=== PATIENT | female | born 1965 | race Hispanic/Latino ===

== ENCOUNTER → 2023-06-02 | Emergency (ER) | payer OTHER ==
[~2023-06-02] MED LIST: KETOROLAC 30 MG/ML INJ ONE; NA CHLORIDE 0.9% 1,000 ML ONE; POTASSIUM 25 MEQ EFFERV TAB ONE
--- OUTSIDE RECORDS SUMMARY | 2023-06-02 12:23 | XMS REPORT | Continuity of Care Document ---
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 CO2 TOTAL (test code = 5746318920) 30 mmol/L 23-31 AGAP (test code = 9807913874) 2-16 BUN (test code = 6665272212) 12 mg/dL 7-23 GLUCOSE (test code = 0135950806) 96 mg/dL 70-110 CREATININE (test code = 8094172292) 0.59 mg/dL 0.50-1.04 TOTAL BILI (test code = 8015395327) 0.4 mg/dL 0.1-1.1 CALCIUM (test code = 8324230902) 8.4 mg/dL 8.6-10.6 L T PROTEIN (test code = 0668381722) 7.6 g/dL 6.3-8.2 ALBUMIN (test code = 0713632137) 4.4 g/dL 3.5-5.0 ALK PHOS (test code = 6150732959) 132 U/L 34-122 H ALTv (test code = 1742-6) 29 U/L 5-35 AST(SGOT) (test code = 2240005947) 25 U/L 13-40 eGFR (test code = 2657968361) mL/min/1.73m2 SHADE (test code = SHADE) Association of Glomerular Filtration Rate (GFR) and Staging of Kidney Disease* + --+ --+ ------+| GFR (mL/min/1.73 m2) ?| With Kidney Damage ?| ?Without Kidney Damage+ --------+ --------+ +| ?>90 ?| ?Stage one ?| ? Normal ?+ ---+ ---+ -------+| ?60-89 ?| ?Stage two ?| ? Decreased GFR ? + --+ --+ ------+| ?30-59 ?| ?Stage three ?| ? Stage three ? + --+ --+ ------+| ?15-29 ?| ?Stage four ? | ? Stage four ?+ ---+ ---+ -------+| ?<15 (or dialysis) ? ?| ?Stage five ? | ? Stage five ?+ ---+ ---+ -------+ *Each stage assumes the associated GFR level has been in effect for at least three months. ?Stages 1 to 5, with or without kidney disease, indicate chronic kidney disease. Notes: Determination of stages one and two (with eGFR >59mL/min/1.73 m2) requires estimation of kidney damage for at least three months as defined by structural or functional abnormalities of the kidney, manifested by either:Pathological abnormalities or Markers of kidney damage (including abnormalities in the composition of the blood or urine or abnormalities in imaging tests). Lab Interpretation (test code = 67740-2) Abnormal [facility] WITH [id number] 04:49:50* Test Item Value Reference Range Interpretation Comme nts WBC (test code = 6690-2) See_Comment [Zumigo] The system which generated this result transmitted reference range: 4.30 - 11.10 10*3/?L. The reference range was not used to interpret this result as normal/abnormal. RBC (test code = 789-8) See_Comment [Zumigo] The system which generated this result transmitted reference range: 3.93 - 5.25 10*6/?L. The reference range was not used to interpret this result as normal/abnormal. HGB (test code = 718-7) 13.7 g/dL 11.6-15.0 HCT (test code = 4544-3) 40.7 % 35.7-45.2 MCV (test code = 787-2) 88.3 fL 80.6-95.5 MCH (test code = 785-6) 29.7 pg 25.9-32.8 MCHC (test code = 786-4) 33.7 g/dL 31.6-35.1 RDW-SD (test code = 97348-1) 38.4 fL 39.0-49.9 L RDW-CV (test code = 788-0) 11.9 % 12.0-15.5 L PLT (test code = 777-3) See_Comment [Automated messa ge] The system which generated this result transmitted reference range: 166 - 358 10*3/?L. The reference range was not used to interpret this result as normal/abnormal. MPV (test code = 66154-3) 10.9 fL 9.5-12.9 NRBC/100 WBC (test code = 9614870511) See_Comment [Automated [employer] ssage] The system which generated this result transmitted reference range: 0.0 - 10.0 /100 WBCs. The reference range was not used to interpret this result as normal/abnormal. NRBC x10^3 (test code = 9297210081) <0.01 See_Comment [Automated messa ge] The system which generated this result transmitted reference range: 10*3/?L. The reference range was not used to interpret this result as normal/abnormal. GRAN MAT (NEUT) % (test code = 770-8) 51.9 % IMM GRAN % (test code = 1457418143) 0.30 % LYMPH % (test code = 736-9) 37.3 % MONO % (test code = 5905-5) 8.0 % EOS % (test code = 713-8) 2.1 % BASO % (test code = 706-2) 0.4 % GRAN MAT x10^3(ANC) (test code = 9751897651) 4.66 10*3/uL 1.88-7.09 IMM GRAN x10^3 (test code = 0226493607) 0.03 10*3/uL 0.00-0.06 LYMPH x10^3 (test code = 731-0) 3.35 10*3/uL 1.32-3.29 H MONO x10^3 (test code = 742-7) 0.72 10*3/uL 0.33-0.92 EOS x10^3 (test code = 711-2) 0.19 10*3/uL 0.03-0.39 BASO x10^3 (test code = 704-7) 0.04 10*3/uL 0.01-0.07 Lab Interpretation (test code = 55974-9) Abnormal [facility] [place], TXURINALYSIS2020-03-30 08:52:00* Test Item Value Reference Range Interpretation Comme nts APPEARANCE (test code = 3593072697) Hazy Clear A COLOR (test code = 2768690834) Yellow Yellow PH (test code = 4814201920) 4.8-8.0 SP GRAVITY (test code = 4653272855) 1.003-1.030 GLU U QUAL (test code = 6889335843) Normal Normal BLOOD (test code = 7131629260) 2+ Negative A KETONES (test code = 2524340156) Negative Negative PROTEIN (test code = 2887-8) Negative Negative UROBILIN (test code = 9280236460) Normal Normal BILIRUBIN (test code = 1325190827) Negative Negative NITRITE (test code = 3437001526) Negative Negative LEUK JAMIL (test code = 9154076174) 75/uL Negative A RBC/HPF (test code = 6305692766) See_Comment H [Automated [employer]] The system which generated this result transmitted reference range: 0 - 3 HPF. The reference range was not used to interpret this result as normal/abnormal. WBC/HPF (test code = 3628672310) See_Comment [Automated [employer]] The system which generated this result transmitted reference range: 0 - 5 HPF. The reference range was not used to interpret this result as normal/abnormal. BACTERIA (test code = 0386821078) Few Negative A MUCOUS (test code = 8350746813) Moderate Negative LPF A SQ EPITH (test code = 8933390488) HPF Lab Interpretation (test code = 67650-2) Abnormal [facility] [place], TXCBC WITH [id number] 08:37:00* Test Item Value Reference Range Interpretation Comme nts WBC (test code = 6690-2) See_Comment H [Automated message] The system which generated this result transmitted reference range: 4.30 - 11.10 10*3/?L. The reference range was not used to interpret this result as normal/abnormal. RBC (test code = 789-8) See_Comment [Automated message] The system which generated this result transmitted reference range: 3.93 - 5.25 10*6/?L. The reference range was not used to interpret this result as normal/abnormal. HGB (test code = 718-7) 13.8 g/dL 11.6-15 HCT (test code = 4544-3) 40.7 % 35.7-45.2 MCV (test code = 787-2) 87.2 fL 80.6-95.5 MCH (test code = 785-6) 29.6 pg 25.9-32.8 MCHC (test code = 786-4) 33.9 g/dL 31.6-35.1 RDW-SD (test code = 38863-0) 39.5 fL 39-49.9 RDW-CV (test code = 788-0) 12.4 % 12-15.5 PLT (test code = 777-3) See_Comment [Automated message] The system which generated this result transmitted reference range: 166 - 358 10*3/?L. The reference range was not used to interpret this result as normal/abnormal. MPV (test code = 99312-3) 10.4 fL 9.5-12.9 NRBC/100 WBC (test code = 1939871012) See_Comment [Automated message] The system which generated this result transmitted reference range: 0.0 - 10.0 /100 WBCs. The reference range was not used to interpret this result as normal/abnormal. NRBC x10^3 (test code = 9158173965) <0.01 See_Comment [Automated message] The system which generated this result transmitted reference range: 10*3/?L. The reference range was not used to interpret this result as normal/abnormal. GRAN MAT (NEUT) % (test code = 770-8) 82.2 % IMM GRAN % (test code = 6476215755) 0.60 % LYMPH % (test code = 736-9) 7.7 % MONO % (test code = 5905-5) 9.1 % EOS % (test code = 713-8) 0.1 % BASO % (test code = 706-2) 0.3 % GRAN MAT x10^3(ANC) (test code = 6416841285) 12.85 10*3/uL 1.88-7.09 H IMM GRAN x10^3 (test code = 0895340759) 0.10 10*3/uL 0-0.06 H LYMPH x10^3 (test code = 731-0) 1.21 10*3/uL 1.32-3.29 L MONO x10^3 (test code = 742-7) 1.43 10*3/uL 0.33-0.92 H EOS x10^3 (test code = 711-2) <0.03 0.03-0.39 L BASO x10^3 (test code = 704-7) 0.04 10*3/uL 0.01-0.07 Lab Interpretation (test code = 94124-5) Abnormal [facility] [place], TXCOMP. METABOLIC PANEL (42807)2019-06-16 08:25:00* Test Item Value Reference Range Interpretation Comme nts NA (test code = 9324028383) 132 mmol/L 135-145 L K (test code = 5763361720) 3.3 mmol/L 3.5-5 L CL (test code = 7156126681) 96 mmol/L 98-108 L CO2 TOTAL (test code = 2483399496) 25 mmol/L 23-31 AGAP (test code = 4250137212) 2-16 BUN (test code = 9348561757) 10 mg/dL 7-23 GLUCOSE (test code = 8966775314) 143 mg/dL 70-110 H CREATININE (test code = 1673828224) 0.50 mg/dL 0.5-1.04 TOTAL BILI (test code = 1915158267) 0.7 mg/dL 0.1-1.1 CALCIUM (test code = 3458000922) 8.8 mg/dL 8.6-10.6 T PROTEIN (test code = 0549680005) 8.0 g/dL 6.3-8.2 ALBUMIN (test code = 7599556896) 4.5 g/dL 3.5-5 ALK PHOS (test code = 6626139098) 139 U/L 34-122 H ALTv (test code = 1742-6) 33 U/L 5-35 AST(SGOT) (test code = 4395434719) 30 U/L 13-40 eGFR Calculation (Non-) (test code = 3821294612) mL/min/1.73m2 eGFR Calculation () (test code = 2674736440) mL/min/1.73m2 SHADE (test code = SHADE) Association of Glomerular Filtration Rate (GFR) and Staging of Kidney Disease* + --+ --+ ------+| GFR (mL/min/1.73 m2) ?| With Kidney Damage ?| ?Without Kidney Damage+ --------+ --------+ +| ?>90 ?| ?Stage one ?| ? Normal ?+ ---+ ---+ -------+| ?60-89 ?| ?Stage two ?| ? Decreased GFR ? + --+ --+ ------+| ?30-59 ?| ?Stage three ?| ? Stage three ? + --+ --+ ------+| ?15-29 ?| ?Stage four ? | ? Stage four ?+ ---+ ---+ -------+| ?<15 (or dialysis) ? ?| ?Stage five ? | ? Stage five ?+ ---+ ---+ -------+ *Each stage assumes the associated GFR level has been in effect for at least three months. ?Stages 1 to 5, with or without kidney disease, indicate chronic kidney disease. Notes: Determination of stages one and two (with eGFR >59mL/min/1.73 m2) requires estimation of kidney damage for at least three months as defined by structural or functional abnormalities of the kidney, manifested by either:Pathological abnormalities or Markers of kidney damage (including abnormalities in the composition of the blood or urine or abnormalities in imaging tests). Lab Interpretation (test code = 41897-4) Abnormal [facility] [place], TXLIPASE2020-03-30 08:25:00* Test Item Value Reference Range Interpretation Comme [facility] LIPASE (test code = 0492653683) 49 U/L 0-220 Lab Interpretation (test cod e = 34781-8) Normal [facility] [place], TXAD,[facility] OR [facility] ONLY - INFLUENZA A & B DIRECT [id number] 08:24:00* Test Item Value Reference Range Interpretation Comme nts Influenza A (test code = 22296-4) Negative Negative Influenza B (test code = 47392-3) Negative Negative Lab Interpretation (test cod e = 14346-1) Normal [facility] [place], TXRAPID STREP SCREEN FOR GROUP [id number] 08:16:00* Test Item Value Reference Range Interpretation Comme nts Streptococcus pyogenes (grou p A) antigen (test code = 56098-3) Negative Negative Lab Interpretation (test cod e = 04242-4) Normal [facility] [place], TXLacaic Acid Whole [id number] 08:03:00* Test Item Value Reference Range Interpretation Comme nts LACTIC ACID (test code = 7752902229) 1.84 mmol/L 0.5-2.2 Lab Interpretation (test cod e = 32468-6) Normal [facility] [place], TXPOCT [id number] 07:59:00* Test Item Value Reference Range Interpretation Comme nts POCT PREG (test code = 1605) Negative On board controls acceptable with C Line (test code = 3574) Present POCT PREG LOT # (test code = 3575) [id number] POCT PREG TEST DATE ( test code = 3576) 10/16/2020 Lab Interpretation (test cod e = 63743-9) Normal [facility] [place], [place]"
[2023-06-02 13:42] LABS: Hematocrit 42.1 % (36.0-45.0); Hemoglobin 14.7 g/dL (12.0-15.0); MCH 30.9 pg (27.0-35.0); MCHC 34.9 g/dL (32.0-36.0); MCV 88.5 fL (80-100); MPV 8.7 fL (7.6-11.3); Platelets 288 thou/uL (152-406); RBC Red Blood Cell Count 4.76 M/uL (3.86-4.86)
[2023-06-02 13:52] LABS: Anion Gap 10.3 mEq/L (5.0-15.0); Magnesium 2.4 mg/dL (1.6-2.4); Potassium 3.3 mEq/L (3.5-5.1)
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
[2023-06-02 15:03] VITALS: BP 164/91; TEMP 97.3; O2SAT 98
== END ==
LOC: ER 12:19
DX: E87.6 Hypokalemia (principal); M54.2 Cervicalgia; M79.605 Pain in left leg; M79.604 Pain in right leg
CPT/HCPCS: 80048; 36415; 83735; 85027; 96374; 99284; J7030